=== PATIENT | male | born 1960 | race Caucasian/White ===

== ENCOUNTER 2020-04-15 01:59 | Emergency (ER) | payer OTHER ==
[~2020-04-15] VITALS: Ht 175.3 cm; Wt 90.7 kg
[2020-04-15 02:05] VITALS: BP_SYST 162
--- NOTE | 2020-04-15 02:05 | NUR ---
Patient triaged and placed in waiting room. VSS and patient appears in no acute distress at this time. Accompanied by self, awaiting available bed, and MD notified of need for MSE.
--- NOTE | 2020-04-15 03:00 | NUR ---
pt unable to give urine sample.Dr quinones notified.
--- NOTE | 2020-04-15 03:15 | NUR ---
ER examining patient in the triage room.
[2020-04-15 03:40] LABS: BASOPHILS % (AUTO) 0.4 % (0.0-2.0); EOSINOPHILS # (AUTO) 0.1 K/uL (0.0-0.4); EOSINOPHILS % (AUTO) 0.7 % (0.0-4.0); HEMOGLOBIN 17.4 g/dL (14.0-18.0); LYMPHOCYTES # (AUTO) 1.3 K/uL (1.0-5.5); LYMPHOCYTES % (AUTO) 13.2 % (20.5-51.5); MEAN CORPUSCULAR HEMOGLOBIN 34 pg (27-31); MEAN CORPUSCULAR HGB CONC 34 % (32-36); MEAN CORPUSCULAR VOLUME 100 fL (79.0-98.0); MONOCYTES # (AUTO) 0.8 K/uL (0.0-1.0); MONOCYTES % (AUTO) 8.2 % (1.7-9.3); NEUTROPHILS # (AUTO) 7.7 K/uL (1.8-7.7); NEUTROPHILS % (AUTO) 77.5 % (40.0-70.0); PLATELET COUNT (AUTO) 284 K/uL (130-430); RED BLOOD CELL COUNT(AUTO) 5.08 MIL/uL (4.2-6.2); RED CELL DISTRIBUTION WIDTH 14.8 % (9.0-15.0); WHITE BLOOD COUNT (AUTO) 9.9 K/uL (4.8-10.8)
[2020-04-15 03:55] LABS: CALCIUM 9.2 mg/dL (8.4-11.0); CREATININE 1.06 mg/dL (0.55-1.30); POTASSIUM 3.9 mmol/L (3.5-5.1)
[2020-04-15 04:00] LABS: ALBUMIN 4.1 g/dL (3.4-4.8); TOTAL BILIRUBIN 0.8 mg/dL (0.0-1.0)
--- NOTE | 2020-04-15 04:10 | NUR ---
pt still unable to give urine sample.Dr Montgomery notified.
[2020-04-15] MEDS ORDERED: KETOROLAC TROMETHAMINE 60 MG/2 ML VIAL IM ONE ×2 (04:15→07:01)
--- NOTE | 2020-04-15 06:45 | NUR ---
pt taken to CT ambulatory at this time.
--- NOTE | 2020-04-15 07:00 | NUR ---
Assumed care of patient, report received from TAVON Correa. Currently resting in bed, will continue to monitor.
--- NOTE | 2020-04-15 07:08 | NUR ---
Patient to ER bed 8 to gown for evaluation. Side rails up. Report given to Eve MONTES DE OCA.
--- NOTE | 2020-04-15 07:25 | NUR ---
Toradol administered IM as ordered by
[2020-04-15] MEDS ORDERED: NACL 0.9% 1,000 ML IV ONE (07:45)
--- NOTE | 2020-04-15 09:35 | NUR ---
# 20 gauge angiocath placed to RFA. Use of asceptic technique. Opsite placed over site. Blood return noted. Blood for lab drawn from site. Flushed with 10 cc of normal saline. No evidence of infiltration noted. Patient tolerated well.
--- NOTE | 2020-04-15 09:40 | NUR ---
1L NS bolus infusing as ordered.
--- NOTE | 2020-04-15 11:15 | NUR ---
Lawrence catheter inserted as per MD orders. Pt tolerated well. Per MD pt will be sent home with catheter, leg bag attached. Pt educated on use of leg bag, verbalized understanding
--- NOTE | 2020-04-15 11:35 | NUR ---
Urine collected from [place] and sent to lab
[2020-04-15 11:41] LABS: BILIRUBIN,URINE NEGATIVE (NEGATIVE); BLOOD, URINE 2+ (NEGATIVE); CLARITY/URINE CLEAR (CLEAR); COLOR,URINE YELLOW (YELLOW); GLUCOSE,URINE NEGATIVE (NEGATIVE); KETONES,URINE NEGATIVE (NEGATIVE); LEUKOCYTE ESTERASE ,URINE NEGATIVE (NEGATIVE); NITRITE, URINE NEGATIVE (NEGATIVE); PH,URINE 5.5 (5.0-8.0); PROTEIN URINE 2+ (NEGATIVE); UROBILINOGEN,URINE 0.2 (0.2-1.0)
[2020-04-15 11:45] LABS: BACTERIA,URINE FEW /HPF (None Seen); WBC,URINE 0-3 /HPF (0-3)
--- NOTE | 2020-04-15 12:00 | NUR ---
Lab at bedside for blood draw.
[2020-04-15 12:28] LABS: CREATININE 1.08 mg/dL (0.55-1.30); POTASSIUM 4.7 mmol/L (3.5-5.1)
--- NOTE | 2020-04-15 13:25 | NUR ---
Patient given written and verbal discharge instructions and verbalizes understanding. ER MD discussed with patient the results and treatment provided. Patient in stable condition. ID arm band removed. IV catheter removed intact and dressing applied, no active bleeding. Rx of Flomax given. Patient educated on pain management and to follow up with PMD. Pain Scale 0. Opportunity for questions provided and answered. Medication side effect fact sheet provided.
[2020-04-15 13:26] VITALS: BP_SYST 162
== END 2020-04-15 13:25 | disposition home or self-care (01) ==
LOC: SED 01:59
DX: T83.091A Other mechanical complication of indwelling urethral catheter, initial encounter (principal); N28.89 Other specified disorders of kidney and ureter; N13.2 Hydronephrosis with renal and ureteral calculous obstruction; E87.1 Hypo-osmolality and hyponatremia; K80.20 Calculus of gallbladder without cholecystitis without obstruction; K44.9 Diaphragmatic hernia without obstruction or gangrene
CPT/HCPCS: 36415; 51702; 74176; 80048; 80053; 81000; 85025; 96374; 99284; J1885; J7030

== ENCOUNTER 2020-05-09 04:25 | Emergency (ER) | payer OTHER ==
[~2020-05-09] VITALS: Ht 175.3 cm; Wt 90.7 kg
[2020-05-09 04:35] VITALS: BP_SYST 187
--- NOTE | 2020-05-09 04:35 | NUR ---
Patient to ER bed 6 to gown for evaluation. Side rails up.
--- NOTE | 2020-05-09 04:38 | NUR ---
ER at bedside examining patient.
--- NOTE | 2020-05-09 04:46 | NUR ---
# 16 FR Lawrence catheter with use of sterile technique. Immediate return of 100 cc red color urine noted. Bedside drainage bag placed below level of bladder. Urine sample collected and sent to lab. Pt tolerated procedure well.
--- NOTE | 2020-05-09 04:50 | NUR ---
PT AAO AND AMBULATORY PT REPORTS WAKING UP TO BLOOD IN URINE. PT REPORTS FEELING URINARY RETENTION AND DISCOMFORT IN GROIN. PT REPORTS 10/10 PAIN SCALE.
[2020-05-09] MEDS ORDERED: NACL 0.9% 1,000 ML IV ONE (05:00)
[2020-05-09] MEDS ORDERED: cefTRIAXone 1 GM IVPB PREMIX 50 ML IV ONE (05:00)
[2020-05-09] MEDS ORDERED: KETOROLAC TROMETHAMINE 30 MG VIAL IVP ONE (05:15)
[2020-05-09 05:21] LABS: BASOPHILS # (AUTO) 0.1 K/uL (0.0-0.2); BASOPHILS % (AUTO) 0.6 % (0.0-2.0); EOSINOPHILS # (AUTO) 0.1 K/uL (0.0-0.4); EOSINOPHILS % (AUTO) 1.3 % (0.0-4.0); HEMATOCRIT 48.7 % (36-54); HEMOGLOBIN 16.4 g/dL (14.0-18.0); LYMPHOCYTES # (AUTO) 1.1 K/uL (1.0-5.5); LYMPHOCYTES % (AUTO) 12.2 % (20.5-51.5); MEAN CORPUSCULAR HEMOGLOBIN 33 pg (27-31); MEAN CORPUSCULAR HGB CONC 34 % (32-36); MEAN CORPUSCULAR VOLUME 99 fL (79.0-98.0); MONOCYTES # (AUTO) 0.7 K/uL (0.0-1.0); MONOCYTES % (AUTO) 7.7 % (1.7-9.3); NEUTROPHILS % (AUTO) 78.2 % (40.0-70.0); PLATELET COUNT (AUTO) 318 K/uL (130-430); RED CELL DISTRIBUTION WIDTH 14.6 % (9.0-15.0)
[2020-05-09 05:31] LABS: CALCIUM 9.4 mg/dL (8.4-11.0)
[2020-05-09 05:32] LABS: ALBUMIN 3.6 g/dL (3.4-4.8); CREATININE 1.48 mg/dL (0.55-1.30); TOTAL BILIRUBIN 1.3 mg/dL (0.0-1.0)
[2020-05-09 05:37] LABS: BILIRUBIN,URINE NEGATIVE (NEGATIVE); BLOOD, URINE 3+ (NEGATIVE); CLARITY/URINE CLOUDY (CLEAR); COLOR,URINE RED (YELLOW); GLUCOSE,URINE NEGATIVE (NEGATIVE); KETONES,URINE NEGATIVE (NEGATIVE); LEUKOCYTE ESTERASE ,URINE NEGATIVE (NEGATIVE); NITRITE, URINE NEGATIVE (NEGATIVE); PROTEIN URINE 3+ (NEGATIVE); UROBILINOGEN,URINE 0.2 (0.2-1.0)
[2020-05-09 05:40] LABS: BACTERIA,URINE FEW /HPF (None Seen); RBC,URINE >100 /HPF (0-3); WBC,URINE 0-3 /HPF (0-3)
--- NOTE | 2020-05-09 05:45 | NUR ---
PT REPORTS IMPROVED PAIN SCALE. PAIN IS NOW 3/10. PT IS RESTING QUIETLY IN NO DISTRESS. PT AWAITING DISPOSITION.
--- NOTE | 2020-05-09 07:07 | NUR ---
REPORT TO BRAD WHO WILL ASSUME CARE OF PT.
--- NOTE | 2020-05-09 07:25 | NUR ---
Pt remains stable on room air, resting without agitation at this time. Pt tolerating IV Medications well. Left arm Catheter infusing well. No S/S of infiltration or infection. Lawrence catheter patent.
--- NOTE | 2020-05-09 07:44 | NUR ---
ER Dr. Cervantes at bedside examining patient.
[2020-05-09] MEDS ORDERED: MORPHINE 4 MG/ML INJ. SYRINGE IVP ONE (07:45)
[2020-05-09 08:23] VITALS: BP_SYST 130
--- NOTE | 2020-05-09 08:23 | NUR ---
ER discussed with the patient the results and treatment provided. Patient given written and verbal discharge instructions and verbalized understanding. Opportunity for questions provided and answered. Patient in stable condition, last set of vital signs within normal limits, pain scale 0/10, speaking in full sentences and ambulated with a steady gait upon discharge. ID arm band removed. Rx of Pyridium and Levaquin given. Patient educated on pain management and to follow up with PMD. Medication side effect fact sheet provided.
== END 2020-05-09 08:23 | disposition home or self-care (01) ==
LOC: SED 04:25
DX: N30.00 Acute cystitis without hematuria (principal); R33.9 Retention of urine, unspecified
CPT/HCPCS: 36415; 51702; 80053; 81000; 85025; 87040; 96365; 96375; 99284; J0696; J1885; J2270; J7030

== ENCOUNTER 2020-05-26 11:10 | Emergency (ER) | payer OTHER ==
[~2020-05-26] VITALS: Ht 175.3 cm; Wt 89.8 kg
[2020-05-26 11:10] VITALS: BP_SYST 158
[2020-05-26 11:49] VITALS: BP_SYST 158
== END 2020-05-26 11:45 | disposition home or self-care (01) ==
LOC: SED 11:10
DX: N32.89 Other specified disorders of bladder (principal); I10 Essential (primary) hypertension
CPT/HCPCS: 99281